=== PATIENT | female | born 1960 | race Caucasian/White ===

== ENCOUNTER → 2018-10-08 11:29 | Outpatient (CLI) | payer OTHER, SELFPAY ==
--- NOTE | 2018-10-08 | DI.MG.S_ITS ---
BILATERAL DIGITAL SCREENING MAMMOGRAM 3D/2D WITH CAD: 10/08/2018 CLINICAL: Routine screening. Comparison is made to exams dated: 10/08/2017 mammogram, 10/02/2016 mammogram, and 09/17/2015 mammogram - [facility]. The tissue of both breasts is heterogeneously dense. This may lower the sensitivity of mammography. Current study was also evaluated with a Computer Aided Detection (CAD) system. No significant masses, calcifications, or other findings are seen in either breast. There has been no significant interval change. IMPRESSION: NEGATIVE There is no mammographic evidence of malignancy. A 1 year screening mammogram is recommended. This exam was interpreted at Station ID: [id number]. NOTE: For mammograms, a report in lay terms will be sent to the patient. Approximately 15% of breast malignancies will not be visualized mammographically. In the management of a palpable breast mass, a negative mammogram must not discourage biopsy of a clinically suspicious lesion. Electronically Signed By: Kade shipley/milagros:10/08/2018 13:27:07 letter sent: Normal Exam ACR BI-RADS Category 1: Negative 3341F
== END ==
PROVIDERS: PCP Physician Assistant; Visit Provider Physician Assistant
DX: Z12.31 Encounter for screening mammogram for malignant neoplasm of breast (principal)
CPT/HCPCS: 77063; 77067

== ENCOUNTER → 2018-12-17 10:05 | Outpatient (CLI) | payer OTHER, SELFPAY ==
[2018-12-17 11:20] LABS: Add Manual Diff / Slide Review NO; Basophils Absolute Auto 0 /uL (0-100); Basophils Percent Auto 0.8 % (0-2); Eosinophils Absolute Auto 100 /uL (0-450); Eosinophils Percent Auto 2.2 % (2-4); Hematocrit 44.3 % (36-46); Hemoglobin 14.6 g/dL (12.0-16.0); Lymphocytes Absolute Auto 1700 /uL (1100-4500); Lymphocytes Percent Auto 28.4 % (25-40); Mean Corpuscular Hemoglobin 28.5 PG (26-34); Mean Corpuscular Volume 86.2 fL (80-100); Monocytes Absolute Auto 500 /uL (0-900); Monocytes Percent Auto 9.2 % (3-14); Neutrophils Absolute Auto 3500 /uL (1500-7000); Neutrophils Percent Auto 59.4 % (50-75); Platelet Count 270 X10^3/uL (150-400); Red Blood Cell Count 5.14 X10^6/uL (4.0-5.2); Red Cell Distribution Width 14.4 % (11.6-14.8); White Blood Cell Count 5.9 X10^3/uL (4.5-11.0)
[2018-12-17 11:39] LABS: Alanine Aminotransferase 41 IU/L (9-52); Albumin 4.5 g/dL (3.5-5.0); Albumin Globulin Ratio 1.3 (1.0-2.8); Alkaline Phosphatase 72 U/L (38-126); Aspartate Aminotransferase 33 IU/L (14-36); BUN Creatinine Ratio 17.5 (6-22); Bilirubin Total 0.4 mg/dL (0.2-1.3); Blood Urea Nitrogen 14 mg/dL (7-17); Calcium 9.6 mg/dL (8.4-10.2); Carbon Dioxide 31 mmol/L (22-32); Chloride 102 mmol/L (98-107); Cholesterol 233 mg/dL (140-199); Estimated Glomerular Filt Rate > 60.0 mL/min (>60); Globulin 3.4 g/dL (1.7-4.1); Glucose 93 mg/dL (70-100); HDL Cholesterol 46 mg/dL (40-60); HEMOLYSIS < 15 (0-50); LDL Cholesterol Calculated 159 mg/dL (<100); Potassium 4.1 mmol/L (3.4-5.1); Sodium 143 mmol/L (137-145); Total Protein 7.9 g/dL (6.3-8.2); Triglycerides 141 mg/dL (35-150)
[2018-12-17 11:47] LABS: Iron 97 ug/dL (37-170)
[2018-12-17 11:58] LABS: Total Iron Binding Capacity 343 ug/dL (265-497)
[2018-12-17 12:13] LABS: Ferritin 26.4 ng/mL (11.1-264); Thyroid Stimulating Hormone 0.59 uIU/mL (0.47-4.68)
== END ==
PROVIDERS: Visit Provider Internal Medicine
DX: E61.1 Iron deficiency (principal); F41.9 Anxiety disorder, unspecified; E78.5 Hyperlipidemia, unspecified; I10 Essential (primary) hypertension
CPT/HCPCS: 36415; 80053; 80061; 82728; 83540; 83550; 84443; 85025

== ENCOUNTER → 2019-04-08 12:49 | Outpatient (CLI) | payer OTHER, SELFPAY ==
[2019-04-08 13:21] LABS: Alanine Aminotransferase 41 IU/L (9-52); Albumin 4.7 g/dL (3.5-5.0); Albumin Globulin Ratio 1.4 (1.0-2.8); Alkaline Phosphatase 56 U/L (38-126); Aspartate Aminotransferase 34 IU/L (14-36); Bilirubin Total 0.5 mg/dL (0.2-1.3); Blood Urea Nitrogen 14 mg/dL (7-17); Calcium 9.5 mg/dL (8.4-10.2); Carbon Dioxide 31 mmol/L (22-32); Chloride 101 mmol/L (98-107); Cholesterol 203 mg/dL (140-199); Estimated Glomerular Filt Rate > 60.0 mL/min (>60); Globulin 3.3 g/dL (1.7-4.1); Glucose 93 mg/dL (70-100); HDL Cholesterol 44 mg/dL (40-60); HEMOLYSIS < 15 (0-50); LDL Cholesterol Calculated 121 mg/dL (<100); Potassium 4.2 mmol/L (3.4-5.1); Sodium 141 mmol/L (137-145); Triglycerides 191 mg/dL (35-150)
== END ==
PROVIDERS: PCP Internal Medicine; Visit Provider Internal Medicine
DX: E78.5 Hyperlipidemia, unspecified (principal)
CPT/HCPCS: 36415; 80053; 80061

== ENCOUNTER → 2019-04-15 15:24 | Outpatient (ROUT) | payer OTHER, SELFPAY ==
[2019-04-15 15:50] LABS: Add Manual Diff / Slide Review NO; Basophils Absolute Auto 100 /uL (0-100); Basophils Percent Auto 0.8 % (0-2); Eosinophils Absolute Auto 100 /uL (0-450); Eosinophils Percent Auto 1.5 % (2-4); Hematocrit 43.2 % (36-46); Hemoglobin 14.3 g/dL (12.0-16.0); Lymphocytes Absolute Auto 1400 /uL (1100-4500); Lymphocytes Percent Auto 21.7 % (25-40); Mean Corpuscular Hemoglobin 28.9 PG (26-34); Mean Corpuscular Volume 87.5 fL (80-100); Monocytes Absolute Auto 500 /uL (0-900); Monocytes Percent Auto 7.4 % (3-14); Neutrophils Absolute Auto 4400 /uL (1500-7000); Neutrophils Percent Auto 68.6 % (50-75); Platelet Count 294 X10^3/uL (150-400); Red Blood Cell Count 4.94 X10^6/uL (4.0-5.2); Red Cell Distribution Width 13.4 % (11.6-14.8); White Blood Cell Count 6.4 X10^3/uL (4.5-11.0)
[2019-04-18 22:44] LABS: Estrogen 95.4 pg/mL
== END ==
PROVIDERS: PCP Internal Medicine; Visit Provider Internal Medicine
DX: N95.1 Menopausal and female climacteric states (principal); N93.8 Other specified abnormal uterine and vaginal bleeding
CPT/HCPCS: 82672; 83001; 83002; 85025

== ENCOUNTER → 2019-04-16 14:33 | Outpatient (CLI) | payer OTHER, SELFPAY ==
--- NOTE | 2019-04-16 | DI.US.S_ITS ---
PROCEDURE: US PELVIC COMPLETE INDICATIONS: ABNORMAL UTERINE AND VAGINAL BLEEDING TECHNIQUE: Real-time scanning was performed of the pelvic organs, with image documentation. Additional endovaginal scanning was necessary due to incomplete visualization of the adnexal and endometrial structures by transabdominal scanning. COMPARISON: None. FINDINGS: Transabdominal scanning: Limited scanning through the kidneys shows no hydronephrosis. No pathologic free abdominal or pelvic fluid. Endovaginal scanning: Uterus: Uterus is enlarged in size at 7.5 x 3.7 x 4.4 cm. The endometrium measures 4.0 mm in combined thickness. Solid hypoechoic cervical posterior wall mass present likely a cervical fibroid measuring 2.5 x 2.1 x 2.8 cm. Subserosal uterine and intramural fibroids present, measuring 2.0 x 1.8 x 2.1 cm and 1.7 x 1.7 x 1.7 cm respectively. Ovaries: Ovaries normal in size measuring 2.5 x 1.0 x 1.2 cm on the right and 2.7 x 1.6 x 2.2 cm on the left. Thick walled, complex mass associated with the left ovary measuring 2.0 x 1.8 x 2.0 cm. IMPRESSION: 1. Uterine fibroids and probable posterior wall cervical fibroid which measures up to 2.8 cm. Followup ultrasound in 3 months is recommended to assess for temporal stability and/or changes. 2. Probable small left hemorrhagic cyst measuring up to 2.0 cm. Recommend followup ultrasound in 6-10 weeks to assess for temporal resolution. Dictated by: Clemente AVILA Interpreted: Safia Darnell MD on 04/17/2019 at 8:47 Approved by: Safia Darnell MD, PhD on 04/17/2019 at 9:55
== END ==
PROVIDERS: PCP Internal Medicine; Visit Provider Internal Medicine
DX: N93.8 Other specified abnormal uterine and vaginal bleeding (principal); D25.1 Intramural leiomyoma of uterus; D25.2 Subserosal leiomyoma of uterus; N83.292 Other ovarian cyst, left side
CPT/HCPCS: 76830; 76856

== ENCOUNTER → 2019-06-23 12:27 | Outpatient (CLI) | payer OTHER, SELFPAY ==
--- NOTE | 2019-06-23 | DI.US.S_ITS ---
PROCEDURE: US PELVIC COMPLETE INDICATIONS: IRREGULAR BLEEDING TECHNIQUE: Real-time scanning was performed of the pelvic organs, with image documentation. Additional endovaginal scanning was necessary due to incomplete visualization of the adnexal and endometrial structures by transabdominal scanning. COMPARISON: [facility], , US PELVIC COMPLETE, 04/16/2019, 14:47. FINDINGS: Transabdominal scanning: Limited scanning through the kidneys shows no hydronephrosis. No pathologic free abdominal or pelvic fluid. Endovaginal scanning: Uterus: Uterus is normal in size at 4.0 x 5.2 x 7.9 cm, anteverted. The endometrium measures 10.0 mm in combined thickness and there is a polypoid mass identified with a vascular stalk with the overall dimensions measuring up to 1.1 x 1.2 x 0.8 cm. What appear to be uterine fibroids are present, measuring up to 3.1 x 2.9 x 2.1 cm and 1.9 x 1.7 x 2.2 cm at the left myometrium and also at the midline, subserosal positioning.. The larger of these 2 is located at the junction of the cervix and the lower uterine segment. The exact etiology is uncertain. Ovaries: The right ovary measures 1.0 x 1.4 x 2.4 cm. The left ovary measures 1.8 x 2.2 x 3.4 cm. A 1.5 cm simple cyst is seen at the left ovary. IMPRESSION: Abnormal endometrial mass, comprised of a polypoid mass like structure on a vascular stalk, in a post menopausal patient. Additionally, there is a solid ovoid mass at the left low uterine segment margin with the cervix. This most likely is a uterine fibroid but gynecological consultation is recommended to assess each of these areas for possible underlying malignancy. Dictated by: Sunny Frias M.D. on 06/23/2019 at 15:19 Approved by: Sunny Frias M.D. on 06/23/2019 at 15:24
== END ==
PROVIDERS: PCP Internal Medicine; Visit Provider Internal Medicine
DX: N95.0 Postmenopausal bleeding (principal); N83.8 Other noninflammatory disorders of ovary, fallopian tube and broad ligament; N83.292 Other ovarian cyst, left side; N85.9 Noninflammatory disorder of uterus, unspecified
CPT/HCPCS: 76830; 76856

== ENCOUNTER → 2019-11-04 08:54 | Outpatient (CLI) | payer OTHER, SELFPAY ==
[2019-11-05 09:54] LABS: COVID19 Sendout Not Detected (Not Detect)
== END ==
PROVIDERS: PCP Internal Medicine; Visit Provider Registered Nurse
DX: Z01.818 Encounter for other preprocedural examination (principal)
CPT/HCPCS: 87635

== ENCOUNTER 2019-11-06 10:06 | Day surgery (SDC) | payer OTHER, SELFPAY ==
[2019-11-04 08:10] VITALS: BMI 26.9
[2019-11-06] VITALS (12 sets, daily range): BP systolic 123–149; BP diastolic 67–100; PULSE 69–98; RESP 14–24; TEMP 36.2–36.9; O2SAT 95–100; BMI 25.7
--- NOTE | 2019-11-06 | PATH_ITS ---
[facility] Accession Number: [id number] . 01 Material submitted: . cervix - CERVICAL POLYP . 01 Clinical history: . D/C HYSTEROSCOPY . 02 Diagnosis: Cervical Polyp: Multiple fragments of benign polyp, favor endocervix / lower uterine segment origin; negative for glandular hyperplasia, glandular dysplasia, or malignancy. [facility] 11/07/2019 1356 Local . 02 Electronically signed: . Love Arango MD, Pathologist NPI- [id number] . 01 Gross description: . CERVICAL POLYP: Received in formalin are minute fragments of mucoid and hemorrhagic material measuring 0.3 x 0.2 x 0.2 cm in aggregate. Submitted in toto in 1 cassette. /DANIEL 11/06/20199 Local . 02 Pathologist provided ICD-10: N94.89 . 02 CPT . 124809 Performed at: 01 [facility] [address], [place], [place] [id number] MD Eb Rosario MD Phone: [phone] Performed at: 02 [facility] [address] [place], [place] [id number] MD Rafaela Hoyt MD Phone: [phone]
[2019-11-06] MEDS: LACTATED RINGERS 1,000 ML 42 ML IV (11:01)
--- NOTE | 2019-11-06 11:55 | PM.PREOP ---
Pre-operative Note COVID-19 COVID-19 status: Negative Result date/Date tested (Pos, Neg/Pending): 11/04/19 Interval Note History & Physical reviewed/Exam performed by Physician: Yes Changes to H&P: No
[2019-11-06] MEDS: SILVER NITRATE STICK 2 EACH TOP (13:53)
--- NOTE | 2019-11-06 14:31 | P.OP_ITS ---
Operative Date/Time/Diagnoses Date of procedure: 11/06/19 Time of procedure: 14:00 Pre-op diagnosis: polypoid endometrial mass on ultrasound Post-op diagnosis: other (uterine cavity not well visualized) Procedure & Clinicians Procedure: Removal of cervical polyp. Dilatation, hysteroscopy. Same procedure as scheduled: No (dilatation and hysteroscopy peprformed. curretage not performed) Indications: 1.1 cm polypoid endometrial mass on ultrasound Surgeon: Bhavya Mena Click Yes if Unassisted: Yes Anesthesia Type: General Operative Notes Findings: 1/2 cm cervical polyp protruding at the cervical os, appeared attached within lower cervical canal. After removal, on hysteroscopy the endocervical canal otherwise appeared normal, without lesions. Did not see any extension of the cervical polyp higher into the endocervical canal nor in to the uterus. Atrophic appearing endometrium seen on brief visualization and uterine cavity and appear to be a narrow cavity, but further assessment of uterine cavity not able to be performed. Closure Type: not applicable Specimen(s): other (Cervical polyp) Estimated Blood Loss (mL): 10 Blood products transfused: none Procedure in detail: After being properly identified she was transferred to the operating room. After an adequate level of general anesthesia was obtained she was placed in Remy stirrups in the dorsal lithotomy position. Bimanual examination was performed. She was prepped and draped in routine sterile fashion. Her bladder was sterilely drained with a rubber catheter with the prep, of approximately 200 mL of urine. An open-sided speculum was placed and the cervix was grasped with a single-tooth tenaculum. Speculum was then changed to the weighted speculum. An approximate 1/2x1cm polyp was seen at the cervical os, with probing appeared to have a loose attachment going into the cervical canal. Polyp left in place at this time, to see if it further extended into the uterus. Up on attempting to dilate, the internal cervical os was stenotic. The smallest dilator would not pass. The very small director surface transportation dilator set was obtained but a very small dilator would not pass in the area that palpated to be her cervical os. I did not want to pass the tiniest dilator and create a false channel. At this time the hysteroscope was used and passed through the external os, and I visualize where the internal os appeared to be to confirm I was in the correct location. After failing attempt with the dilator again, I used a plastic os finder and this was able to be passed through the cervical os. The small dilators were then used and gradual dilatation was performed. After some dilatation, the uterine sound was passed. Uterus sounded to 6 cm. The cervix was further gradually dilated up and the small hysteroscope was able to be passed. Normal saline solution was used as the uterine distention medium. Visualization could not be obtained in the uterine cavity, only being able to see bloody fluid, not clearing up otherwise. The scope was removed and the cervix was further dilated. Repeat hysteroscopy performed, but again without obtaining adequate visualization. Cervix was thus further gradually dilated to accommodate the larger operative hysteroscope/resectoscope for the larger inflow and outflow. Cervix was tight with trying to pass the last dilator and the tenaculum pulled off twice and was again placed. This dilator was able to be gradually passed with pressure. Uterus was re-sounded and sounded to 6 cm. This resectoscope was passed. Normal saline solution was still left as the hysteroscopic medium. The cervical polyp was noted to be in attached just within the cervical canal on her posterior right side. Since this polyp was being pushed into the cervix with the larger dilators, and resectoscope, at this time the polyp was grasped with the polyp forceps and removed. The resectoscope was then placed back in the cervical canal. The polyp appeared removed and without bleeding from the site. The scope was further inserted into the uterus. Initially again there was only normal bloody fluid noted, but it began to now clear with keeping the resectoscope in the upper uterus. Initial partial view revealed a small, narrow uterine cavity with only white atrophic tissue seen. The view was still cloudy, hysteroscopic medium was still clearing, and tubal ostia, full cavity and endometrium not yet visualized. 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 The resectoscope was removed and additional anesthesia medication was given. After she appeared comfortable the hysteroscope was again placed. With placement now the hysteroscope passed much deeper than previously, with no resistance met at the fundus. The hysteroscope was removed. The uterine sound was placed and the sound passed to 13 cm with no resistance met, could have been fast further. Uterine perforation suspected. The resectoscope was again placed and upon attempted visualization now, bowel could be visible near what appeared to be a uterine opening. There was more turbulent flow now of the normal saline solution, not good uterine distention but it appeared to be around her left uterine fundus. There was no bleeding noted at the site. The resectoscope was thus removed with confirmed uterine perforation. Also at this time for the 1st time input and output became out of balance from running even. The procedure was thus now ended. No endometrial sampling was performed due to the uterine perforation. The tenaculum was removed. There was good hemostasis at the tenaculum site. With observation there was no bleeding from the cervical os. Good hemostasis noted. The procedure was ended. She tolerated the procedure well and went to recovery room stable condition. Complications: other (uterine perforation at the fundus) Post-operative Condition: stable Disposition: PACU Plan for aftercare: Placed as observation patient for 4 hours with CBC in 4 hours post procedure. Vital signs remained good. She had minimal bleeding on her pad. Repeat CBC in 4 hours showed a normal hemoglobin/hematocrit, same as her baseline. She was thus discharged home with precautions given for when to call including review of signs and symptoms of infection.
--- NOTE | 2019-11-06 14:40 | SUR.PHASEI ---
Patient denies nausea. C/O slight cramping. Will transfer upstairs fpr obs.
[2019-11-06] MEDS: IBUPROFEN 600 MG TABLET PO (15:58)
--- NOTE | 2019-11-06 17:10 | PC.NURSE ---
Addendum entered by Hawa Pascal R.N. 11/06/19 19:49: Per Dr. Mena, pt may be discharged to home. IV removed by car cleaning supervisor, Nadia, discharge instructions [facility]atal[facility]. Pt was given clear liquids to drink prior to discharge. Left hospital with staff escort in stable condition. Addendum entered by Hawa Pascal R.N. 11/06/19 18:10: Surgeon in to see patient. Awaiting 1800 lab draw. No diet order per MD until lab results reported. Original Note: Pt resting quietly in bed. Admits to feeling urge to void. Has attempted void prior to the beginning of this shift without any measurable urine being passed. Bladder scanned for 302 cc's. Pt with standby assistance into bathroom and able to void 800 cc's per STUDENT DEVELOPMENT COORDINATOR. Pt denies nausea. Reports very little vaginal bleeding. Peripad in place. Awaiting 1800 blood draw. Ibuprofen given for pt's c/o abdominal cramping similar to menstrual cramps per pt statement 3-4/.
[2019-11-06 18:26] LABS: Hematocrit 43.8 % (36-46); Hemoglobin 14.3 g/dL (12.0-16.0); Mean Corpuscular HGB Conc 32.7 % (30-36); Mean Corpuscular Hemoglobin 27.9 PG (26-34); Mean Corpuscular Volume 85.3 fL (80-100); Platelet Count 288 X10^3/uL (150-400); Red Blood Cell Count 5.14 X10^6/uL (4.0-5.2); Red Cell Distribution Width 14.8 % (11.6-14.8); White Blood Cell Count 12.3 X10^3/uL (4.5-11.0)
[2019-11-06 18:51] LABS: Add Manual Diff / Slide Review NO; Basophils Percent Auto 0.2 % (0-2); Lymphocytes Absolute Auto 1 /uL (1100-4500); Lymphocytes Percent Auto 5.3 % (25-40); Monocytes Absolute Auto 0 /uL (0-900); Monocytes Percent Auto 0.8 % (3-14); Neutrophils Absolute Auto 12 /uL (1500-7000); Neutrophils Percent Auto 93.7 % (50-75)
[2019-11-06 18:52] LABS: Basophils Absolute Auto 0 /uL (0-100); Eosinophils Absolute Auto 0 /uL (0-450)
== END 2019-11-06 19:47 | disposition home or self-care (01) ==
LOC: OR 10:08 → AC 15:20
PROVIDERS: PCP Internal Medicine; Referring Provider Obstetrics & Gynecology; Visit Provider Obstetrics & Gynecology
PROC: 0UDB8ZZ Extraction of Endometrium, Via Natural or Artificial Opening Endoscopic (ICD-10-PCS; CPT 58558; principal; 2019-11-06 11:15)
DX: N84.0 Polyp of corpus uteri (principal); S37.69XA Other injury of uterus, initial encounter; K21.9 Gastro-esophageal reflux disease without esophagitis; F41.9 Anxiety disorder, unspecified; K22.70 Barrett's esophagus without dysplasia; D64.9 Anemia, unspecified; I10 Essential (primary) hypertension
CPT/HCPCS: 58558; 36415; 85025; J1100; J2250; J2405; J2704; J3010

== ENCOUNTER → 2019-12-08 13:30 | Outpatient (CLI) | payer OTHER, SELFPAY ==
[2019-11-06 15:27] VITALS: BMI 25.7
--- NOTE | 2019-12-08 13:31 | DI.US.S_ITS ---
PROCEDURE: US PELVIC COMPLETE INDICATIONS: ENDOMETRIAL THICKNESS TECHNIQUE: Real-time scanning was performed of the pelvic organs, with image documentation. Additional endovaginal scanning was necessary due to incomplete visualization of the adnexal and endometrial structures by transabdominal scanning. COMPARISON: None. FINDINGS: Transabdominal scanning: Limited scanning through the kidneys shows no hydronephrosis. No pathologic free abdominal or pelvic fluid. Endovaginal scanning: Uterus: Uterus is enlarged in size at 9.8 x 3.8 x 4.9 cm. The endometrium measures 1.2 cm in combined thickness. 3 subserosal fibroids the largest measuring up to 3.6 cm which involves the posterior cervix. Ovaries: Ovaries measure 2.5 x 1.2 x 2.0 cm on the right and 4.4 x 2.9 x 2.6 cm on the left. Complex cyst with fine low level internal echoes and septations associated with the left ovary measuring 2.5 x 1.9 x 2.2 cm. IMPRESSION: Left ovarian complex cyst suspicious for either a hemorrhagic ovarian cyst or endometrioma. Other benign or malignant neoplasm cannot be excluded and short-term followup pelvic ultrasound in 6-12 weeks is recommended. Presumed subserosal fibroids, largest of which involves the posterior wall of the cervix which also can be reassessed on followup examination to exclude an underlying cervical wall neoplastic mass. Dictated by: Clemente AVILA Interpreted: Rashida Villanueva MD on 12/08/2019 at 15:22 Approved by: Rashida Villanueva M.D. on 12/08/2019 at 17:44
== END ==
PROVIDERS: PCP Internal Medicine; Referring Provider Obstetrics & Gynecology; Visit Provider Obstetrics & Gynecology
DX: R93.89 Abnormal findings on diagnostic imaging of other specified body structures (principal); N83.292 Other ovarian cyst, left side; D25.9 Leiomyoma of uterus, unspecified
CPT/HCPCS: 76830; 76856

== ENCOUNTER → 2020-02-03 15:52 | Outpatient (CLI) | payer OTHER, SELFPAY ==
[2019-12-16 13:33] VITALS: BMI 25.7
--- NOTE | 2020-02-03 | DI.MG.S_ITS ---
BILATERAL DIGITAL SCREENING MAMMOGRAM 3D/2D WITH CAD: 02/03/2020 CLINICAL: Routine screening. Comparison is made to exams dated: 10/08/2018 mammogram, 10/08/2017 mammogram, and 10/02/2016 mammogram - [facility]. The tissue of both breasts is heterogeneously dense. This may lower the sensitivity of mammography. Current study was also evaluated with a Computer Aided Detection (CAD) system. No significant masses, calcifications, or other findings are seen in either breast. There has been no significant interval change. IMPRESSION: NEGATIVE There is no mammographic evidence of malignancy. A 1 year screening mammogram is recommended. This exam was interpreted at Station ID: [id number]. NOTE: For mammograms, a report in lay terms will be sent to the patient. Approximately 15% of breast malignancies will not be visualized mammographically. In the management of a palpable breast mass, a negative mammogram must not discourage biopsy of a clinically suspicious lesion. Electronically Signed By: Ghulam garcia/milagros:02/03/2020 16:19:45 letter sent: Normal Exam ACR BI-RADS Category 1: Negative 3341F
== END ==
PROVIDERS: PCP Internal Medicine; Referring Provider Internal Medicine; Visit Provider Internal Medicine
DX: Z12.31 Encounter for screening mammogram for malignant neoplasm of breast (principal)
CPT/HCPCS: 77063; 77067

== ENCOUNTER → 2020-08-26 15:10 | Outpatient (ROUT) | payer OTHER, SELFPAY ==
[2019-12-16 13:33] VITALS: BMI 25.7
[2020-08-26 15:45] LABS: Add Manual Diff / Slide Review NO; Basophils Absolute Auto 100 /uL (0-100); Basophils Percent Auto 1.2 % (0-2); Eosinophils Absolute Auto 100 /uL (0-450); Eosinophils Percent Auto 1.9 % (2-4); Hematocrit 42.9 % (36-46); Hemoglobin 14.1 g/dL (12.0-16.0); Lymphocytes Absolute Auto 1500 /uL (1100-4500); Lymphocytes Percent Auto 24.4 % (25-40); Mean Corpuscular HGB Conc 32.8 % (30-36); Mean Corpuscular Hemoglobin 27.9 PG (26-34); Monocytes Absolute Auto 500 /uL (0-900); Monocytes Percent Auto 8.8 % (3-14); Neutrophils Absolute Auto 3900 /uL (1500-7000); Neutrophils Percent Auto 63.7 % (50-75); Platelet Count 280 X10^3/uL (150-400); Red Blood Cell Count 5.05 X10^6/uL (4.0-5.2); Red Cell Distribution Width 13.6 % (11.6-14.8)
[2020-08-26 16:03] LABS: HEMOLYSIS < 15 (0-50); Iron 83 ug/dL (37-170)
[2020-08-26 16:08] LABS: Alanine Aminotransferase 45 IU/L (<35); Albumin 4.6 g/dL (3.5-5.0); Albumin Globulin Ratio 1.5 (1.0-2.8); Alkaline Phosphatase 91 U/L (38-126); Aspartate Aminotransferase 34 IU/L (14-36); BUN Creatinine Ratio 17.3 (6-22); Bilirubin Total 0.3 mg/dL (0.2-1.3); Blood Urea Nitrogen 13 mg/dL (7-17); Carbon Dioxide 27 mmol/L (22-32); Chloride 104 mmol/L (98-107); Cholesterol 234 mg/dL (140-199); Estimated Glomerular Filt Rate > 60.0 mL/min (>60); Glucose 111 mg/dL (70-100); HDL Cholesterol 48 mg/dL (40-60); HEMOLYSIS < 15 (0-50); LDL Cholesterol Calculated 150 mg/dL (<100); Potassium 4.1 mmol/L (3.4-5.1); Sodium 142 mmol/L (137-145); Total Protein 7.6 g/dL (6.3-8.2); Triglycerides 178 mg/dL (35-150)
[2020-08-26 16:14] LABS: Percent Iron Saturation 22 % (15-50); Total Iron Binding Capacity 373 ug/dL (265-497); Transferrin 310 mg/dL (206-381)
[2020-08-26 16:40] LABS: Ferritin 20 ng/mL (11-264)
== END ==
PROVIDERS: PCP Internal Medicine; Visit Provider Physician Assistant
DX: E78.5 Hyperlipidemia, unspecified (principal); D50.9 Iron deficiency anemia, unspecified; I10 Essential (primary) hypertension
CPT/HCPCS: 80053; 80061; 82728; 83540; 83550; 85025

== ENCOUNTER → 2020-08-27 14:09 | Outpatient (CLI) | payer OTHER, SELFPAY ==
[2019-12-16 13:33] VITALS: BMI 25.7
[2020-08-27] MEDS: COVID-19 VACC #1, MRNA(MOD) 100 MCG/0.5 ML VIAL IM (14:21)
== END ==
PROVIDERS: PCP Internal Medicine; Visit Provider Internal Medicine
DX: Z23 Encounter for immunization (principal)
CPT/HCPCS: 0011A; 91301

== ENCOUNTER → 2020-09-24 14:05 | Outpatient (CLI) | payer OTHER, SELFPAY ==
[2019-12-16 13:33] VITALS: BMI 25.7
[2020-09-24] MEDS: COVID-19 VACC #2, MRNA(MOD) 100 MCG/0.5 ML VIAL IM (14:14)
== END ==
PROVIDERS: PCP Internal Medicine; Visit Provider Internal Medicine
DX: Z23 Encounter for immunization (principal)
CPT/HCPCS: 0012A; 91301

== ENCOUNTER → 2021-03-22 08:59 | Outpatient (CLI) | payer OTHER, SELFPAY ==
[2019-12-16 13:33] VITALS: BMI 25.7
--- NOTE | 2021-03-22 | DI.MG.S_ITS ---
BILATERAL DIGITAL SCREENING MAMMOGRAM 3D/2D WITH CAD: 03/22/2021 CLINICAL: Routine screening. Comparison is made to exams dated: 02/03/2020 mammogram, 10/08/2018 mammogram, and 10/08/2017 mammogram - [facility]. The tissue of both breasts is heterogeneously dense. This may lower the sensitivity of mammography. Current study was also evaluated with a Computer Aided Detection (CAD) system. There are benign calcifications in the left breast. No significant masses, calcifications, or other findings are seen in either breast. There has been no significant interval change. IMPRESSION: BENIGN There is no mammographic evidence of malignancy. A 1 year screening mammogram is recommended. This exam was interpreted at Station ID: [id number]. NOTE: For mammograms, a report in lay terms will be sent to the patient. Approximately 15% of breast malignancies will not be visualized mammographically. In the management of a palpable breast mass, a negative mammogram must not discourage biopsy of a clinically suspicious lesion. Electronically Signed By: Jaqueline logan/milagros:03/22/2021 10:23:38 letter sent: Normal Exam ACR BI-RADS Category 2: Benign Finding(s) 3342F
== END ==
PROVIDERS: PCP Physician Assistant; Referring Provider Physician Assistant; Visit Provider Physician Assistant
DX: Z12.31 Encounter for screening mammogram for malignant neoplasm of breast (principal)
CPT/HCPCS: 77063; 77067

== ENCOUNTER → 2021-03-28 09:28 | Outpatient (CLI) | payer OTHER, SELFPAY ==
[2019-12-16 13:33] VITALS: BMI 25.7
--- NOTE | 2021-03-28 | DI.CT.S_ITS ---
PROCEDURE: CT ABDOMEN PELVIS W CON INDICATIONS: LOWER ABD PAIN TECHNIQUE: After the administration of oral and IV contrast, axial sections were acquired from the lung bases to the pubic symphysis. Coronal and sagittal reformats were performed. For radiation dose reduction, the following was used: automated exposure control, adjustment of mA and/or kV according to patient size. COMPARISON: None. FINDINGS: Image quality: Excellent. Lung bases: No consolidation or pleural effusion. Heart: No significant findings. ABDOMEN: Liver: Unremarkable. Gallbladder: Distended without wall thickening or pericholecystic fluid. Biliary ducts: Unremarkable. Pancreas: Normal contour without duct dilatation. Spleen: Normal contour without enlargement. Adrenal Glands: Unremarkable. Kidneys and Ureters: Symmetric enhancement without evidence of obstructive uropathy. Stomach and Bowel: Trace hiatal hernia. No evidence of intestinal obstruction. Pang diverticulosis. Normal appendix. Peritoneum: No abnormal intraperitoneal fluid. No free air. Ventral Wall: No hernia. Abdominal Nodes: No retroperitoneal or mesenteric adenopathy by size criteria. Vessels: Aorta and inferior vena cava are normal in size. PELVIS: Pelvic Organs: Unremarkable. Bladder: Smooth bladder wall. Pelvic Nodes: No enlarged lymph nodes. Miscellaneous: Trace fat containing periumbilical hernia. Bones: Unremarkable. Suggestion of rudimentary ribs at T12. 5 non rib-bearing vertebrae. IMPRESSION: 1. No acute intra-abdominal/pelvic abnormality. Dictated by: Edgardo Napoles M.D. on 03/28/2021 at 11:29 Approved by: Edgardo Napoles M.D. on 03/28/2021 at 11:35
== END ==
PROVIDERS: PCP Physician Assistant; Referring Provider Physician Assistant; Visit Provider Physician Assistant
DX: R10.30 Lower abdominal pain, unspecified (principal)
CPT/HCPCS: 74177; Q9967

== ENCOUNTER → 2021-04-15 11:18 | Outpatient (CLI) | payer OTHER, SELFPAY ==
[2019-12-16 13:33] VITALS: BMI 25.7
[2021-04-15] MEDS: COVID-19 VACC #3, MRNA(MOD) 50 MCG/0.25 ML VIAL IM (11:27)
== END ==
PROVIDERS: PCP Physician Assistant; Visit Provider Internal Medicine
DX: Z23 Encounter for immunization (principal)
CPT/HCPCS: 0013A; 91301

== ENCOUNTER 2021-10-10 11:26 | Emergency (ER) | payer OTHER, SELFPAY ==
[2019-12-16 13:33] VITALS: BMI 25.7
[2021-10-10] VITALS (7 sets, daily range): BP systolic 118–159; BP diastolic 65–89; PULSE 64–132; RESP 16–22; TEMP 36.7; O2SAT 97–100; BMI 27.3
[2021-10-10 12:32] LABS: Add Manual Diff / Slide Review NO; Basophils Absolute Auto 100 /uL (0-100); Basophils Percent Auto 0.5 % (0-2); Eosinophils Absolute Auto 0 /uL (0-450); Eosinophils Percent Auto 0.3 % (2-4); Hematocrit 32.5 % (36-46); Lymphocytes Absolute Auto 1500 /uL (1100-4500); Lymphocytes Percent Auto 13.3 % (25-40); Mean Corpuscular HGB Conc 33.9 % (30-36); Mean Corpuscular Hemoglobin 28.2 PG (26-34); Mean Corpuscular Volume 83.3 fL (80-100); Monocytes Absolute Auto 800 /uL (0-900); Monocytes Percent Auto 6.9 % (3-14); Neutrophils Absolute Auto 8600 /uL (1500-7000); Platelet Count 335 X10^3/uL (150-400); Red Blood Cell Count 3.91 X10^6/uL (4.0-5.2); Red Cell Distribution Width 13.6 % (11.6-14.8)
[2021-10-10 12:53] LABS: Alanine Aminotransferase 30 IU/L (<35); Albumin 4.4 g/dL (3.5-5.0); Albumin Globulin Ratio 1.5 (1.0-2.8); Alkaline Phosphatase 73 U/L (38-126); Aspartate Aminotransferase 35 IU/L (14-36); BUN Creatinine Ratio 22.8 (6-22); Bilirubin Total 0.5 mg/dL (0.2-1.3); Blood Urea Nitrogen 18 mg/dL (7-17); Calcium 9.1 mg/dL (8.4-10.2); Carbon Dioxide 26 mmol/L (22-32); Chloride 104 mmol/L (98-107); Estimated Glomerular Filt Rate > 60 mL/min (>60); Globulin 2.9 g/dL (1.7-4.1); Glucose 116 mg/dL (70-100); HEMOLYSIS < 15 (0-50); Potassium 3.8 mmol/L (3.4-5.1); Sodium 138 mmol/L (137-145); Total Protein 7.3 g/dL (6.3-8.2)
[2021-10-10 14:09] LABS: INR 1.1 (0.9-1.3); Prothrombin Time 12.3 SECONDS (10.1-12.7)
[2021-10-10 14:11] LABS: PTT Partial Thromboplastin Tim 27 SECONDS (26.4-36.2)
[2021-10-10 14:16] LABS: Lactate (Lactic Acid) 1.1 mmol/L (0.7-2.1)
[2021-10-10] MEDS: PANTOPRAZOLE 40 MG VIAL IV (15:39)
[2021-10-10] MEDS: SODIUM CHLORIDE 0.9% 1,000 ML 1000 ML IV (15:52)
--- NOTE | 2021-10-10 16:25 | ED_ITS ---
HPI - GI Bleed General Chief complaint: GI Bleed Stated complaint: States GI bleed over the weekend Time Seen by Provider: 10/10/21 16:25 Source: patient Mode of arrival: Ambulatory History of Present Illness HPI Narrative: Patient is a 61-year-old female history of diverticulitis, Sorensen's esophagus anxiety presenting today with 2 days of rectal bleeding. She says she noticed it he yesterday she had maroon like bowel movements a couple of them. Today it actually improved. She is not on any antiplatelet or anticoagulation medicati on. Last week she did notice some mild left lower quadrant pain but it did seem to improve. She actually had a colonoscopy 9 years ago with a GI doctor she said she was given a clean bill [facility] [employer] and is due for 1 next year. She had an EGD at that time as well because she had some very it is often gets but she says that is now well controlled. She denies any nausea or vomiting. She denies any black or stool. She is known to be quite tachycardic but she is very anxious is. She denies any chest pain palpitation shortness of breath dizziness or lightheadedness. Related Data Home Medications Medication Instructions Recorded Confirmed candesartan 8 mg tablet 8 mg PO DAILY 08/12/19 01/22/20 omeprazole magnesium 20 mg 20 mg PO DAILY 08/12/19 01/22/20 tablet,delayed release (Prilosec OTC) alprazolam 0.5 mg tablet 0.5 mg PO BEDTIME PRN MDD 1.0 10/22/19 01/22/20 dicyclomine 20 mg tablet 20 mg PO BID PRN 10/22/19 01/22/20 Previous Rx's Medication Instructions Recorded acetaminophen 325 mg tablet 325 mg PO PACUNOW PRN #0 tab 11/06/19 Allergies Allergy/AdvReac Type Severity Reaction Status Date / Time lisinopril AdvReac Cough Verified 01/22/20 13:58 Review of Systems Review of Systems Narrative: GENERAL: Denies chills, fatigue, malaise, fever, sweats, travel HEENT: Denies sinus pain, ear pain, sore throat, difficulty swallowing, neck p ain RESPIRATORY: Denies dyspnea, cough, wheezing, hemoptysis, sputum. CARDIOVASCULAR: Denies chest pain, palpitations, orthopnea, edema GASTROINTESTINAL: See HPI : Denies dysuria, frequency, incontinence, hematuria, urinary retention, flank pain. MUSCULOSKELETAL: Denies weakness, joint pain, or bony pain SKIN: No rash, no erythema, no pruritus NEUROLOGIC: Denies weakness, dizziness, headache, numbness, change in speech, confusion PSYCHIATRIC: No concerning psychosocial issues. 12 point review of systems is negative except for those stated above and HPI Patient History Medical History (Updated 10/10/21 @ 18:12 by Fouzia Vasquez DO) Anemia Sorensen's syndrome (~2010) Benign colon polyp Chicken pox (~1969) Diverticular disease (~2010) Fibroids (~2018) GERD (gastroesophageal reflux disease) (~2010) Hemorrhoids History of irregular menstrual cycles (~2018) Hypertension (~2017) Recurrent sinusitis Uterine polyp Family History Grandfather Congestive heart failure Grandmother Cancer Grandfather Heart disease Grandmother Tuberculosis Social History marital status: unmarried,single household members: none pets and animals: Yes (Dog) education level: master's degree occupational status: previously employed current occupational exposures/hazards: No chpais/restorationist: Hinduism seatbelt use: always water heater temp set < 120 deg: Yes working smoke detector in home: Yes fire extinguisher in home: Yes carbon monox detector in home: Yes firearms in home: No do you feel safe at home: Yes Smoking Status: Never smoker alcohol intake: current substance use type: does not use during the past year weight has: remained stable well-balanced diet: daily or most days daily servings fruits/ve-4 eating out: rarely or never Type(s) of exercise: walking and other frequency: 3-4 times per week duration: 60-90 minutes/day Smoking Status: Never smoker alcohol intake frequency: holidays/special occasions only Substance Use Type: does not use Exam Initial Vital Signs Initial Vital Signs: Vital Signs Temperature 98.0 F 10/10/21 12:06 Pulse Rate 132 H 10/10/21 12:06 Respiratory Rate 18 10/10/21 12:06 Blood Pressure 125/70 10/10/21 12:06 Pulse Oximetry 97 10/10/21 12:06 GENERAL: Well-appearing, well-nourished and in no acute distress. HEENT: Head atraumatic,EOMI, pupils reactive, face symmetric, moist mucous membranes CARDIOVASCULAR: Regular rate and rhythm without murmurs, rubs or gallops. RESPIRATORY: Breath sounds equal bilaterally, no wheezes rales or rhonchi. ABDOMEN: Soft, minimal left lower quadrant pain no guarding no rebound negative Juan sign no other pain. RECTAL: Hemoccult-positive : No CVA tenderness EXTREMITIES: Normal range of motion, no clubbing or edema. Neurovascularly intact NEUROLOGICAL: Alert and oriented x4.Normal gait and speech. SKIN: Warm, dry, no laceration, no petechiae, no rashes or lesions. Course Orders Ordered: ED Orders 10/10/21 12:10 EKG-12 Lead Stat 10/10/21 12:19 Complete Blood Count AUTO DIFF Stat Comprehensive Metabolic Panel Stat Lactate (Lactic Acid) Stat PT [Prothrombin Time INR] Stat PTT [Partial Thromboplastin Time] Stat 10/10/21 15:57 Hemoglobin and Hematocrit Stat Urine Culture Stat Urine Microscopic Stat 10/10/21 17:14 CT abdomen pelvis w con Stat Discontinued Medications Sodium Chloride (Normal Saline 0.9%) 1,000 mls @ 1,000 mls/hr IV BOLUS ONE Stop: 10/10/21 16:40 Last Infusion: 10/10/21 17:05 Dose: 0 mls/hr Documented by: Admin: 10/10/21 15:52 Dose: 1,000 mls/hr Documented by: ESTHER Pantoprazole Sodium (Pantoprazole 40 Mg Vial) 40 mg IV NOW ONE Stop: 10/10/21 14:01 Last Admin: 10/10/21 15:39 Dose: 40 mg Documented by: ESTHER Vital Signs Vital signs: Vital Signs - 8 hr 10/10/21 15:24 10/10/21 16:00 10/10/21 16:01 Pulse Rate 120 H 64 Respiratory Rate 18 16 Blood Pressure 118/65 129/68 Pulse Oximetry 100 98 10/10/21 16:30 10/10/21 17:00 10/10/21 18:50 Pulse Rate 104 H 96 H 110 H Respiratory Rate 22 16 20 Blood Pressure 159/89 H 147/67 H 149/87 H Pulse Oximetry 100 100 99 MDM - GI Bleed Lab Data Result diagrams: 10/10/21 15:57 10/10/21 12:19 Labs: Lab Results 10/10/21 10/10/21 10/10/21 Range/Units 12:19 12:19 12:19 WBC 11.0 (4.5-11.0) X10^3/uL RBC 3.91 L (4.0-5.2) X10^6/uL Hgb 11.0 L (12.0-16.0) g/dL Hct 32.5 L (36-46) % MCV 83.3 (80-100) fL MCH 28.2 (26-34) PG MCHC 33.9 (30-36) % RDW 13.6 (11.6-14.8) % Plt Count 335 (150-400) X10^3/uL Neut % (Auto) 79.0 H (50-75) % Lymph % (Auto) 13.3 L (25-40) % [place] % (Auto) 6.9 (3-14) % Eos % (Auto) 0.3 L (2-4) % Baso % (Auto) 0.5 (0-2) % Neut # (Auto) 8600 H (9470-4116) /uL Lymph # (Auto) 1500 (5133-2484) /uL [place] # (Auto) 800 (0-900) /uL Eos # (Auto) 0 (0-450) /uL Baso # (Auto) 100 (0-100) /uL PT 12.3 (10.1-12.7) SECONDS INR 1.1 (0.9-1.3) APTT 27 (26.4-36.2) SECONDS Sodium 138 (137-145) mmol/L Potassium 3.8 (3.4-5.1) mmol/L Chloride 104 (98-107) mmol/L Carbon Dioxide 26 (22-32) mmol/L BUN 18 H (7-17) mg/dL Creatinine 0.79 (0.52-1.04) mg/dL Estimated GFR > 60 (>60) mL/min BUN/Creatinine Ratio 22.8 H (6-22) Glucose 116 H (70-100) mg/dL Lactate (0.7-2.1) mmol/L Calcium 9.1 (8.4-10.2) mg/dL Total Bilirubin 0.5 (0.2-1.3) mg/dL AST 35 (14-36) IU/L ALT 30 (<35) IU/L Alkaline Phosphatase 73 (38-126) U/L Total Protein 7.3 (6.3-8.2) g/dL Albumin 4.4 (3.5-5.0) g/dL Globulin 2.9 (1.7-4.1) g/dL Albumin/Globulin Ratio 1.5 (1.0-2.8) Urine RBC (0-5/HPF) Urine WBC (0-5/HPF) Ur Transition Epith Cell (0-5/HPF) Ur Renal Epithelial Cell (0-1/HPF) Urine Bacteria (None) Ur Culture Indicated? 10/10/21 10/10/21 10/10/21 Range/Units 12:19 15:57 15:57 WBC (4.5-11.0) X10^3/uL RBC (4.0-5.2) X10^6/uL Hgb 11.0 L (12.0-16.0) g/dL Hct 33.5 L (36-46) % MCV (80-100) fL MCH (26-34) PG MCHC (30-36) % RDW (11.6-14.8) % Plt Count (150-400) X10^3/uL Neut % (Auto) (50-75) % Lymph % (Auto) (25-40) % [place] % (Auto) (3-14) % Eos % (Auto) (2-4) % Baso % (Auto) (0-2) % Neut # (Auto) (8695-8426) /uL Lymph # (Auto) (4829-2312) /uL [place] # (Auto) (0-900) /uL Eos # (Auto) (0-450) /uL Baso # (Auto) (0-100) /uL PT (10.1-12.7) SECONDS INR (0.9-1.3) APTT (26.4-36.2) SECONDS Sodium (137-145) mmol/L Potassium (3.4-5.1) mmol/L Chloride (98-107) mmol/L Carbon Dioxide (22-32) mmol/L BUN (7-17) mg/dL Creatinine (0.52-1.04) mg/dL Estimated GFR (>60) mL/min BUN/Creatinine Ratio (6-22) Glucose (70-100) mg/dL Lactate 1.1 (0.7-2.1) mmol/L Calcium (8.4-10.2) mg/dL Total Bilirubin (0.2-1.3) mg/dL AST (14-36) IU/L ALT (<35) IU/L Alkaline Phosphatase (38-126) U/L Total Protein (6.3-8.2) g/dL Albumin (3.5-5.0) g/dL Globulin (1.7-4.1) g/dL Albumin/Globulin Ratio (1.0-2.8) Urine RBC 1-5/hpf (0-5/HPF) Urine WBC 5-10/hpf H (0-5/HPF) Ur Transition Epith Cell 1-5/hpf (0-5/HPF) Ur Renal Epithelial Cell 5-10/hpf H (0-1/HPF) Urine Bacteria Moderate (10-30) H (None) Ur Culture Indicated? Culture not indicate Point of Care Testing Test Results Negative Stool Occult Blood Positive Urine Dip Bedside Urine Glucose Negative Bedside Urine Bilirubin - Negative Bedside Urine Ketone + 15 Urine Specific [place] 1.020 Bedside Urine Occult Blood + Bedside Urine pH 6.0 Bedside Urine Protein - Negative Bedside Urine Urobilinogen +/- 1mg Bedside Urine Nitrite - Negative Bedside Urine Leukocytes ++ [address] scan - abdomen/pelvis: Radiologist's Impression: Aurelia Elise MR#: [id number] : 1960 Acct:[id number] Age/Sex: 61 / F Date of Service: 10/10/21 Loc: ED Accession Number: [id number] ?? Procedure: CT abdomen pelvis w con Ordering Provider: Fouzia Vasquez D.O. PROCEDURE:? CT ABDOMEN PELVIS W CON ? INDICATIONS:? llq pain and gi bleed ? TECHNIQUE:? After the administration of intravenous contrast, axial sections acquired from the lung bases to the pubic symphysis.? Coronal and sagittal reformats were performed.? For radiation dose reduction, the following was used:? automated exposure control, adjustment of mA and/or kV according to patient size.? ? COMPARISON:? [facility], CT, CT ABDOMEN PELVIS W CON, 03/28/2021, 10:56. ? FINDINGS:? Image quality:? Excellent.? ? Lung bases:? Unremarkable. Heart:? No significant findings. ? ABDOMEN: Liver:? Unremarkable.? ? Gallbladder:? Unremarkable.? ? Biliary ducts:? Unremarkable.? ? Pancreas:? Unremarkable.? ? Spleen:? Unremarkable.? ? Adrenal Glands:? Unremarkable.? ? Kidneys and Ureters:? Unremarkable.? ? ? Stomach and Bowel:? Extensive sigmoid diverticulosis.? No convincing evidence of acute diverticulitis.? There is diverticulosis involving the entirety of the colon.? It is relatively extensive throughout.2? Peritoneum:? No abnormal intraperitoneal fluid.? No free air.? ? Ventral Wall: ? No hernias.? Abdominal Nodes:? No retroperitoneal or mesenteric adenopathy by size criteria.? Vessels:? Aorta and inferior vena cava are normal in size.? ? PELVIS: Pelvic Organs:? Multiple uterine fibroids are noted.? A spherical lesion immediately subjacent to the wall of the distal sigmoid colon on image 63/2 represents a exophytic uterine fibroid measuring 1.7 cm.? There is also what appears to be a slightly enlarging somewhat exophytic left lower uterine segment fibroid. Bladder:? Unremarkable.? ? Pelvic Nodes: No enlarged lymph nodes.? Miscellaneous: No hernias are seen. ? ? ? Bones:? Unremarkable.? IMPRESSION:? ? 1. Extensive diverticulosis without CT evidence of acute diverticulitis. ? 2. Fibroid uterus. ? ? Dictated by: Martin Gonzalez M.D. on 10/10/2021 at 17:35 ? ? ECG Data Interpretation: Sinus rhythm rate 102 MS interval 140 QRS 90 QTC 445 T-wave inversion noted in lead [address] changes MDM Narrative Medical decision making narrative: Patient does have rectal bleeding she is Hemoccult positive hemoglobin is slightly decreased from 14-11 however 14 with done over a year ago. She actually has repeat hemoglobin and hematocrit and remains exactly the same. Heart rate improved with normal saline she is quite anxious normal lactate normal CT. She has had no further episodes of GI bleeding while in the emergency department and she has been here for 6 hours. She has a GI doctor that she sees regularly. At this time and this can be managed outpatient. I discussed with her home to return to the ED be. I expect that she may have some continued GI bleeding but it had largely improved with time. At this time no need for admission. Discharge Plan Departure Patient Disposition: Home Clinical Impression: Acute GI bleeding Instructions: Gastrointestinal Bleeding Activity Restrictions/Additional Instructions: *You have been diagnosed with GI bleeding *What to do: At this time her blood levels are stable. I do strongly encourage you to follow-up get a colonoscopy. I hope that the bleeding decreases over the next 1-2 days however it may start increasing. *Continue to take medications as directed *Follow up with your primary care provider in 2-3 days or call [phone] Follow-up with general surgery or your GI doctor for a colonoscopy *Return to ER if you should have increasing blood loss dizziness lightheadedness vomiting palpitations or any new, worsening or concerning symptoms Prescriptions: No Action Prilosec OTC 20 mg tablet,delayed release (DR/EC) 20 mg PO DAILY 0RF candesartan 8 mg tablet 8 mg PO DAILY 0RF alprazolam 0.5 mg tablet 0.5 mg PO BEDTIME MDD 1.0 PRN (Reason: Anxiety) 0RF dicyclomine 20 mg tablet 20 mg PO BID PRN (Reason: Cramps) 0RF acetaminophen 325 mg Tablet 325 mg PO PACUNOW PRN (Reason: Pain, Mild (1-3)) Qty: 0 0RF Referrals: Danielle Armas PA-C [Primary Care Provider] -
[2021-10-10 16:34] LABS: Hematocrit 33.5 % (36-46)
[2021-10-10 16:50] LABS: RBC Urine 1-5/HPF (0-5/HPF); WBC Urine 5-10/HPF (0-5/HPF)
[2021-10-10 16:51] LABS: Bacteria Urine Moderate (10-30); Renal Epithelial Cells Urine 5-10/HPF (0-1/HPF); Transitional Epi Cells Urine 1-5/HPF (0-5/HPF)
--- NOTE | 2021-10-10 17:14 | DI.CT.S_ITS ---
PROCEDURE: CT ABDOMEN PELVIS W CON INDICATIONS: llq pain and gi bleed TECHNIQUE: After the administration of intravenous contrast, axial sections acquired from the lung bases to the pubic symphysis. Coronal and sagittal reformats were performed. For radiation dose reduction, the following was used: automated exposure control, adjustment of mA and/or kV according to patient size. COMPARISON: [facility], CT, CT ABDOMEN PELVIS W CON, 03/28/2021, 10:56. FINDINGS: Image quality: Excellent. Lung bases: Unremarkable. Heart: No significant findings. ABDOMEN: Liver: Unremarkable. Gallbladder: Unremarkable. Biliary ducts: Unremarkable. Pancreas: Unremarkable. Spleen: Unremarkable. Adrenal Glands: Unremarkable. Kidneys and Ureters: Unremarkable. Stomach and Bowel: Extensive sigmoid diverticulosis. No convincing evidence of acute diverticulitis. There is diverticulosis involving the entirety of the colon. It is relatively extensive throughout.2 Peritoneum: No abnormal intraperitoneal fluid. No free air. Ventral Wall: No hernias. Abdominal Nodes: No retroperitoneal or mesenteric adenopathy by size criteria. Vessels: Aorta and inferior vena cava are normal in size. PELVIS: Pelvic Organs: Multiple uterine fibroids are noted. A spherical lesion immediately subjacent to the wall of the distal sigmoid colon on image 63/2 represents a exophytic uterine fibroid measuring 1.7 cm. There is also what appears to be a slightly enlarging somewhat exophytic left lower uterine segment fibroid. Bladder: Unremarkable. Pelvic Nodes: No enlarged lymph nodes. Miscellaneous: No hernias are seen. Bones: Unremarkable. IMPRESSION: 1. Extensive diverticulosis without CT evidence of acute diverticulitis. 2. Fibroid uterus. Dictated by: Martin Gonzalez M.D. on 10/10/2021 at 17:35 Approved by: Martin Gonzalez M.D. on 10/10/2021 at 17:40
== END 2021-10-10 18:46 | disposition home or self-care (01) ==
PROVIDERS: Emergency Provider Emergency Medicine; PCP Physician Assistant; Referring Provider Nurse Practitioner Family
DX: K92.2 Gastrointestinal hemorrhage, unspecified (principal)
CPT/HCPCS: 36415; 74177; 80053; 81003; 81015; 81025; 82272; 83605; 85014; 85018; 85025; 85610; 85730; 87086; 93005; 93010; 96361; 96374; 99284; C9113; Q9967

== ENCOUNTER → 2022-03-23 10:58 | Outpatient (CLI) | payer OTHER, SELFPAY ==
[2019-12-16 13:33] VITALS: BMI 25.7
--- NOTE | 2022-03-23 | DI.MG.S_ITS ---
BILATERAL DIGITAL SCREENING MAMMOGRAM 3D/2D WITH CAD: 03/23/2022 CLINICAL: Routine screening. Comparison is made to exams dated: 03/22/2021 mammogram, 02/03/2020 mammogram, and 10/08/2018 mammogram - [facility]. Both breasts are heterogeneously dense, which may obscure small masses (category c / 51-75% glandular tissue). Current study was also evaluated with a Computer Aided Detection (CAD) system. There are benign calcifications in the left breast. No significant masses, calcifications, or other findings are seen in either breast. There has been no significant interval change. IMPRESSION: BENIGN There is no mammographic evidence of malignancy. A 1 year screening mammogram is recommended. This exam was interpreted at Station ID: [id number]. NOTE: For mammograms, a report in lay terms will be sent to the patient. Approximately 15% of breast malignancies will not be visualized mammographically. In the management of a palpable breast mass, a negative mammogram must not discourage biopsy of a clinically suspicious lesion. Electronically Signed By: Jimenez Conley M.D., jr/milagros:03/23/2022 14:19:38 letter sent: Normal Exam ACR BI-RADS Category 2: Benign Finding(s) 3342F
== END ==
PROVIDERS: PCP Physician Assistant; Referring Provider Physician Assistant; Visit Provider Physician Assistant
DX: Z12.31 Encounter for screening mammogram for malignant neoplasm of breast (principal)
CPT/HCPCS: 77063; 77067

== ENCOUNTER → 2023-02-09 10:15 | Outpatient (CLI) | payer OTHER, SELFPAY ==
[2019-12-16 13:33] VITALS: BMI 25.7
[2023-02-09 11:17] LABS: Hematocrit 39.5 % (36-46); Hemoglobin 12.8 g/dL (12.0-16.0); Mean Corpuscular HGB Conc 32.5 % (30-36); Mean Corpuscular Hemoglobin 26.5 PG (26-34); Mean Corpuscular Volume 81.7 fL (80-100); Platelet Count 304 X10^3/uL (150-400); Red Blood Cell Count 4.84 X10^6/uL (4.0-5.2); Red Cell Distribution Width 15.7 % (11.6-14.8); White Blood Cell Count 4.9 X10^3/uL (4.5-11.0)
[2023-02-09 11:28] LABS: HEMOLYSIS < 15 (0-50); Iron 48 ug/dL (37-170)
[2023-02-09 11:30] LABS: Alanine Aminotransferase 37 IU/L (<35); Albumin 4.5 g/dL (3.5-5.0); Albumin Globulin Ratio 1.4 (1.0-2.8); Alkaline Phosphatase 85 U/L (38-126); Aspartate Aminotransferase 32 IU/L (14-36); BUN Creatinine Ratio 13.5 (6-22); Bilirubin Total 0.3 mg/dL (0.2-1.3); Blood Urea Nitrogen 10 mg/dL (7-17); Calcium 9.4 mg/dL (8.4-10.2); Carbon Dioxide 29 mmol/L (22-32); Chloride 103 mmol/L (98-107); Cholesterol 225 mg/dL (140-199); Estimated Glomerular Filt Rate > 60 mL/min (>60); Globulin 3.3 g/dL (1.7-4.1); Glucose 94 mg/dL (80-110); HDL Cholesterol 46 mg/dL (40-60); HEMOLYSIS < 15 (0-50); LDL Cholesterol Calculated 154 mg/dL (<100); Potassium 4.3 mmol/L (3.4-5.1); Sodium 138 mmol/L (137-145); Total Protein 7.8 g/dL (6.3-8.2); Triglycerides 127 mg/dL (35-150)
[2023-02-09 11:40] LABS: Percent Iron Saturation 11 % (15-50); Total Iron Binding Capacity 426 ug/dL (265-497); Transferrin 313 mg/dL (206-381)
[2023-02-09 11:46] LABS: Vitamin D 25 Hydroxy (D3) 26.1 ng/mL (30.0-100.0)
[2023-02-09 11:58] LABS: TSH w/ Reflex to FT4 0.39 uIU/mL (0.47-4.68)
[2023-02-09 12:02] LABS: Ferritin 9 ng/mL (11-264)
[2023-02-09 12:25] LABS: Free T4, Direct Thyroxine 1.16 ng/dL (0.78-2.19)
== END ==
PROVIDERS: PCP Registered Nurse Diabetes Educator; Referring Provider Registered Nurse Diabetes Educator; Visit Provider Registered Nurse Diabetes Educator
DX: Z00.00 Encounter for general adult medical examination without abnormal findings (principal); E61.1 Iron deficiency; I10 Essential (primary) hypertension
CPT/HCPCS: 36415; 80053; 80061; 82306; 82728; 83540; 83550; 84439; 84443; 85027

== ENCOUNTER → 2023-03-26 10:55 | Outpatient (CLI) | payer OTHER, SELFPAY ==
[2019-12-16 13:33] VITALS: BMI 25.7
--- NOTE | 2023-03-26 | DI.MG.S_ITS ---
BILATERAL DIGITAL SCREENING MAMMOGRAM 3D/2D WITH CAD: 03/26/2023 CLINICAL: Routine screening. Comparison is made to exams dated: 03/23/2022 mammogram, 02/03/2020 mammogram, and 03/22/2021 mammogram - [facility]. Both breasts are heterogeneously dense, which may obscure small masses (category c / 51-75% glandular tissue). Current study was also evaluated with a Computer Aided Detection (CAD) system. No significant masses, calcifications, or other findings are seen in either breast. IMPRESSION: NEGATIVE There is no mammographic evidence of malignancy. A 1 year screening mammogram is recommended. Based on the Tyrer Cuzick model (a risk assessment model) the patient's lifetime risk is 15.0% and her 10 year risk is 6.2%. According to the ACR, ACS, and NCCN guidelines, an annual breast MRI exam along with mammogram is recommended if the patient's lifetime risk is 20% or greater. This exam was interpreted at Station ID: [id number]. NOTE: For mammograms, a report in lay terms will be sent to the patient. Approximately 15% of breast malignancies will not be visualized mammographically. In the management of a palpable breast mass, a negative mammogram must not discourage biopsy of a clinically suspicious lesion. Electronically Signed By: Amara willams/milagros:03/27/2023 00:01:23 letter sent: Normal Exam ACR BI-RADS Category 1: Negative 3341F
== END ==
PROVIDERS: PCP Registered Nurse Diabetes Educator; Referring Provider Registered Nurse Diabetes Educator; Visit Provider Registered Nurse Diabetes Educator
DX: Z12.31 Encounter for screening mammogram for malignant neoplasm of breast (principal)
CPT/HCPCS: 77063; 77067

== ENCOUNTER → 2023-05-15 10:48 | Outpatient (CLI) | payer OTHER, SELFPAY ==
[2019-12-16 13:33] VITALS: BMI 25.7
[2023-05-15 12:21] LABS: HEMOLYSIS < 15 (0-50)
[2023-05-15 12:23] LABS: Alanine Aminotransferase 45 IU/L (<35); Albumin 4.5 g/dL (3.5-5.0); Albumin Globulin Ratio 1.4 (1.0-2.8); Alkaline Phosphatase 78 U/L (38-126); Aspartate Aminotransferase 37 IU/L (14-36); Bilirubin Total 0.6 mg/dL (0.2-1.3); Bilirubin Unconjugated 0.3 mg/dL (0.0-1.1); Globulin 3.2 g/dL (1.7-4.1); HEMOLYSIS < 15 (0-50); Total Protein 7.7 g/dL (6.3-8.2)
[2023-05-15 12:57] LABS: TSH w/ Reflex to FT4 0.46 uIU/mL (0.47-4.68)
[2023-05-15 13:01] LABS: Ferritin 22 ng/mL (11-264)
[2023-05-15 14:12] LABS: Iron 81 ug/dL (37-170)
[2023-05-15 14:23] LABS: Percent Iron Saturation 23 % (15-50); Total Iron Binding Capacity 347 ug/dL (265-497); Transferrin 292 mg/dL (206-381)
[2023-05-15 14:29] LABS: Free T4, Direct Thyroxine 1.18 ng/dL (0.78-2.19)
== END ==
PROVIDERS: PCP Registered Nurse Diabetes Educator; Referring Provider Registered Nurse Diabetes Educator; Visit Provider Registered Nurse Diabetes Educator
DX: E61.1 Iron deficiency (principal); R79.89 Other specified abnormal findings of blood chemistry; E55.9 Vitamin D deficiency, unspecified; R74.8 Abnormal levels of other serum enzymes
CPT/HCPCS: 36415; 80076; 82728; 83540; 83550; 84439; 84443

== ENCOUNTER → 2023-09-14 10:16 | Outpatient (CLI) | payer OTHER, SELFPAY ==
[2019-12-16 13:33] VITALS: BMI 25.7
[2023-09-14 11:53] LABS: Alanine Aminotransferase 65 IU/L (<35); Albumin 4.3 g/dL (3.5-5.0); Albumin Globulin Ratio 1.3 (1.0-2.8); Alkaline Phosphatase 90 U/L (38-126); Aspartate Aminotransferase 46 IU/L (14-36); Bilirubin Total 0.7 mg/dL (0.2-1.3); Bilirubin Unconjugated 0.6 mg/dL (0.0-1.1); Cholesterol 231 mg/dL (140-199); Globulin 3.2 g/dL (1.7-4.1); HDL Cholesterol 48 mg/dL (40-60); HEMOLYSIS < 15 (0-50); LDL Cholesterol Calculated 154 mg/dL (<100); Total Protein 7.5 g/dL (6.3-8.2); Triglycerides 144 mg/dL (35-150)
== END ==
PROVIDERS: PCP Registered Nurse Diabetes Educator; Referring Provider Registered Nurse Diabetes Educator; Visit Provider Registered Nurse Diabetes Educator
DX: E78.5 Hyperlipidemia, unspecified (principal); R74.8 Abnormal levels of other serum enzymes
CPT/HCPCS: 36415; 80061; 80076

== ENCOUNTER → 2023-10-03 08:30 | Outpatient (CLI) | payer OTHER, SELFPAY ==
[2019-12-16 13:33] VITALS: BMI 25.7
--- NOTE | 2023-10-03 08:31 | DI.US.S_ITS ---
PROCEDURE: US ABDOMEN LIMITED INDICATIONS: eval liver enzyme elevation TECHNIQUE: Real-time focused scanning was performed of the abdomen, with image documentation. COMPARISON: [facility], CT, CT ABDOMEN PELVIS W CON, 10/10/2021, 17:22. FINDINGS: Liver measures 14 cm. Mildly increased echogenicity. Gallbladder is unremarkable. Nondilated biliary tree. Visualized pancreas unremarkable. IMPRESSION: Mildly increased hepatic echogenicity is nonspecific, possibly related to steatosis. Unremarkable biliary system. Dictated by: Vipul Stuart M.D. on 10/03/2023 at 11:32 Approved by: Vipul Stuart M.D. on 10/03/2023 at 11:33
== END ==
LOC: US 08:31
PROVIDERS: PCP Registered Nurse Diabetes Educator; Referring Provider Registered Nurse Diabetes Educator; Visit Provider Registered Nurse Diabetes Educator
DX: R74.8 Abnormal levels of other serum enzymes (principal)
CPT/HCPCS: 76705

== ENCOUNTER → 2024-04-07 15:10 | Outpatient (CLI) | payer BC, SELFPAY ==
[2019-12-16 13:33] VITALS: BMI 25.7
--- NOTE | 2024-04-07 | DI.MG.S_ITS ---
BILATERAL DIGITAL SCREENING MAMMOGRAM 3D/2D WITH CAD: 04/07/2024 CLINICAL: Routine screening. Comparison is made to exams dated: 03/26/2023 mammogram, 03/23/2022 mammogram, and 03/22/2021 mammogram - [facility]. There are scattered areas of fibroglandular density (category b / 25%-50% glandular tissue). Current study was also evaluated with a Computer Aided Detection (CAD) system. There is a possible developing high density asymmetry with a spiculated margin in the right breast middle depth central to the nipple seen on the craniocaudal view only. This is more prominent. No other significant masses, calcifications, or other findings are seen in either breast. IMPRESSION: INCOMPLETE: NEED ADDITIONAL IMAGING EVALUATION The possible developing high density asymmetry in the right breast is indeterminate. Additional views with possible ultrasound are recommended. Based on the Tyrer Cuzick model (a risk assessment model) the patient's lifetime risk is 9.9% and her 10 year risk is 4.1%. According to the ACR, ACS, and NCCN guidelines, an annual breast MRI exam along with mammogram is recommended if the patient's lifetime risk is 20% or greater. This exam was interpreted at Station ID: [id number]. NOTE: For mammograms, a report in lay terms will be sent to the patient. Approximately 15% of breast malignancies will not be visualized mammographically. In the management of a palpable breast mass, a negative mammogram must not discourage biopsy of a clinically suspicious lesion. Electronically Signed By: Jaqueline logan/milagros:04/08/2024 17:10:17 letter sent: Additional Imaging Needed ACR BI-RADS Category 0: Incomplete: Need Additional Imaging Evaluation
== END ==
PROVIDERS: PCP Registered Nurse Diabetes Educator; Referring Provider Registered Nurse Diabetes Educator; Visit Provider Registered Nurse Diabetes Educator
DX: Z12.31 Encounter for screening mammogram for malignant neoplasm of breast (principal)
CPT/HCPCS: 77063; 77067

== ENCOUNTER → 2024-05-05 11:23 | Outpatient (CLI) | payer BC, SELFPAY ==
[2019-12-16 13:33] VITALS: BMI 25.7
--- NOTE | 2024-05-05 11:25 | DI.US.S_ITS ---
LIMITED ULTRASOUND OF RIGHT BREAST: 05/05/2024 CLINICAL: Patient returns today to evaluate a focal asymmetry in the right breast. Comparison is made to exams dated: 05/05/2024 mammogram, 04/07/2024 mammogram, 03/26/2023 mammogram, and 03/23/2022 mammogram - [facility]. Color flow and real-time ultrasound of the right breast 6-7 o'clock and 12 o'clock regions were performed. Swanson scale images of the real-time examination were reviewed. There is a 1.1 cm x 0.5 cm x 0.7 cm oval cyst with thin septated internal hussein in the right breast at 7 o'clock middle depth 9 cm from the nipple. This oval cyst is hypoechoic with internal echoes. This possibly correlates with mammography findings. Color flow imaging demonstrates that there is no vascularity present. IMPRESSION: PROBABLY BENIGN The 1.1 cm x 0.5 cm x 0.7 cm oval cyst in the right breast is consistent with a complicated cyst and is probably benign. A follow-up right mammogram and right ultrasound in 6 months is recommended to demonstrate stability. Findings and recommendations were conveyed to the patient during today's evaluation. This exam was interpreted at Station ID: [id number]. Electronically Signed By: Kade Wang M.D. aty/:05/05/2024 15:22:46 letter sent: Followup Recommended ACR BI-RADS Category 3: Probably Benign
--- NOTE | 2024-05-05 11:25 | DI.MG.S_ITS ---
UNILATERAL RIGHT DIGITAL DIAGNOSTIC MAMMOGRAM 3D/2D WITH ADDITIONAL VIEWS: 05/05/2024 CLINICAL: Additional evaluation requested from prior study. Comparison is made to exams dated: 04/07/2024 mammogram, 03/26/2023 mammogram, and 03/23/2022 mammogram - [facility]. There are scattered areas of fibroglandular density (category b / 25%-50% glandular tissue). The previously described possible developing oval asymmetry in the right breast middle depth central to the nipple seen on the craniocaudal view only is not definitively seen in today's additional views. It appears less prominent. No other significant masses or calcifications are seen in the breast. IMPRESSION: INCOMPLETE: NEED ADDITIONAL IMAGING EVALUATION The possible developing oval asymmetry in the right breast is indeterminate. An ultrasound is recommended for further evaluation and is scheduled to immediately follow this examination. Based on the Tyrer Cuzick model (a risk assessment model) the patient's lifetime risk is 9.9% and her 10 year risk is 4.1%. According to the ACR, ACS, and NCCN guidelines, an annual breast MRI exam along with mammogram is recommended if the patient's lifetime risk is 20% or greater. This exam was interpreted at Station ID: [id number]. NOTE: For mammograms, a report in lay terms will be sent to the patient. Approximately 15% of breast malignancies will not be visualized mammographically. In the management of a palpable breast mass, a negative mammogram must not discourage biopsy of a clinically suspicious lesion. Electronically Signed By: Kade Wang M.D. aty/:05/05/2024 15:18:29 letter sent: Additional Imaging Needed ACR BI-RADS Category 0: Incomplete: Need Additional Imaging Evaluation
[2024-05-05 12:18] LABS: Hematocrit 43.4 % (36-46); Hemoglobin 14.2 g/dL (12.0-16.0); Mean Corpuscular HGB Conc 32.7 % (30-36); Mean Corpuscular Hemoglobin 28.6 PG (26-34); Mean Corpuscular Volume 87.5 fL (80-100); Platelet Count 304 X10^3/uL (150-400); Red Blood Cell Count 4.96 X10^6/uL (4.0-5.2); Red Cell Distribution Width 14.1 % (11.6-14.8); White Blood Cell Count 7.6 X10^3/uL (4.5-11.0)
[2024-05-05 12:44] LABS: Alanine Aminotransferase 39 IU/L (<35); Albumin 4.6 g/dL (3.5-5.0); Albumin Globulin Ratio 1.6 (1.0-2.8); Alkaline Phosphatase 99 U/L (38-126); Aspartate Aminotransferase 34 IU/L (14-36); BUN Creatinine Ratio 17.9 (6-22); Bilirubin Total 0.7 mg/dL (0.2-1.3); Blood Urea Nitrogen 14 mg/dL (7-17); Carbon Dioxide 29 mmol/L (22-32); Chloride 104 mmol/L (98-107); Cholesterol 228 mg/dL (140-199); Estimated Glomerular Filt Rate > 60 mL/min (>60); Globulin 2.9 g/dL (1.7-4.1); Glucose 98 mg/dL (80-110); HDL Cholesterol 53 mg/dL (40-60); HEMOLYSIS < 15 (0-50); LDL Cholesterol Calculated 150 mg/dL (<100); Potassium 4.6 mmol/L (3.4-5.1); Sodium 140 mmol/L (137-145); Total Protein 7.5 g/dL (6.3-8.2); Triglycerides 124 mg/dL (35-150)
[2024-05-05 13:12] LABS: TSH w/ Reflex to FT4 0.89 uIU/mL (0.47-4.68)
[2024-05-05 14:40] LABS: Hepatitis B Surface Antigen NEGATIVE s/c (NEGATIVE)
[2024-05-05 15:05] LABS: Hep C Virus Ab w/Reflex Quant NEGATIVE s/c (NEGATIVE)
== END ==
PROVIDERS: PCP Registered Nurse Diabetes Educator; Referring Provider Registered Nurse Diabetes Educator; Visit Provider Registered Nurse Diabetes Educator
DX: R92.8 Other abnormal and inconclusive findings on diagnostic imaging of breast (principal); N60.01 Solitary cyst of right breast; I10 Essential (primary) hypertension; E78.5 Hyperlipidemia, unspecified; R74.8 Abnormal levels of other serum enzymes
CPT/HCPCS: 36415; 76642; 77065; 80053; 80061; 84443; 85027; 86803; 87340; G0279

== ENCOUNTER → 2024-09-23 15:38 | Outpatient (CLI) | payer BC, SELFPAY ==
[2019-12-16 13:33] VITALS: BMI 25.7
[2024-09-23 17:39] LABS: Blood Urea Nitrogen 19 mg/dL (7-17); Calcium 9.6 mg/dL (8.4-10.2); Carbon Dioxide 28 mmol/L (22-32); Chloride 104 mmol/L (98-107); Estimated Glomerular Filt Rate > 60 mL/min (>60); Glucose 78 mg/dL (80-110); HEMOLYSIS < 15 (0-50); Potassium 4.6 mmol/L (3.4-5.1); Sodium 141 mmol/L (137-145)
[2024-09-23 18:12] LABS: Rubella Antibody IgG 51.9 IU/mL (>15)
[2024-09-25 09:39] LABS: Rubeola Measles IgG 60.5 AU/mL (Immune >16.4)
[2024-09-25 13:10] LABS: Mumps Virus IgG Antibody 73.1 AU/mL (Immune >10.9)
== END ==
PROVIDERS: PCP Registered Nurse Diabetes Educator; Referring Provider Registered Nurse Diabetes Educator; Visit Provider Registered Nurse Diabetes Educator
DX: Z01.419 Encounter for gynecological examination (general) (routine) without abnormal findings (principal); I10 Essential (primary) hypertension
CPT/HCPCS: 36415; 80048; 86735; 86762; 86765

== ENCOUNTER → 2024-11-12 09:58 | Outpatient (CLI) | payer BC, SELFPAY ==
[2019-12-16 13:33] VITALS: BMI 25.7
--- NOTE | 2024-11-12 09:59 | DI.MG.S_ITS ---
MM diagnostic mammo unilat RT, US breast RT limited: 11/12/2024 BI-RADS: 3 CLINICAL: 64-year old female for right diagnostic mammogram and right diagnostic breast ultrasound. Tyrer-Cuzick lifetime risk of 9.6%. No personal or first-degree family history of breast cancer. PRIOR EXAMS 05/05/2024, 04/07/2024, 03/26/2023, 03/23/2022, 03/22/2021, 02/03/2020, 10/08/2018, 10/08/2017, 10/02/2016, 09/17/2015. MAMMOGRAPHY TECHNIQUE: 2D and 3D (tomosynthesis) digital mammographic views obtained, with additional images as needed for full coverage. Current study was also evaluated with a Computer Aided Detection (CAD) system. ULTRASOUND TECHNIQUE Real-time bernstein scale and color doppler imaging of the area of clinical interest was performed with image documentation. TARGETED Right Breast Ultrasound: Real-time ultrasound exam was performed focused to area of clinical and/or imaging concern. MAMMOGRAPHY FINDINGS Right: Upper at 12:00, Middle depth: There is a stable asymmetry present. Right: Lower Outer at 7:00, Middle depth: There is a stable asymmetry present. ULTRASOUND FINDINGS Right: Lower Outer at 7:00, 9 cm from nipple, measuring 0.6 x 0.4 x 0.2 cm: This has morphology consistent with a benign intramammary lymph node. Right: Upper at 12:00, 9 cm from nipple, measuring 0.4 x 0.6 x 0.4 cm: This has morphology consistent with a benign intramammary lymph node. IMPRESSION: Right: Lower Outer at 7:00, 9 cm from nipple, measuring 0.6 x 0.4 x 0.2 cm * Probably Benign. Right: Upper at 12:00, 9 cm from nipple, measuring 0.4 x 0.6 x 0.4 cm * Probably Benign. RECOMMENDATIONS Right: Lower Outer at 7:00, 9 cm from nipple * Six month followup with diagnostic ultrasound. Right: Upper at 12:00, 9 cm from nipple * Six month followup with diagnostic ultrasound. COMMENTS: Findings and recommendations were conveyed to the patient during today's evaluation. OVERALL ASSESSMENT CATEGORY BI-RADS-3: Probably Benign. ELECTRONICALLY SIGNED: Jaqueline Riggs M.D. on 11/13/2024 at 12:33:53 AM PT Interpreting Station ID: [id number]
== END ==
PROVIDERS: PCP Registered Nurse Diabetes Educator; Referring Provider Registered Nurse Diabetes Educator; Visit Provider Registered Nurse Diabetes Educator
DX: R92.8 Other abnormal and inconclusive findings on diagnostic imaging of breast (principal)
CPT/HCPCS: 76642; 77065; G0279

== ENCOUNTER → 2025-05-04 09:37 | Outpatient (CLI) | payer BC, SELFPAY ==
[2019-12-16 13:33] VITALS: BMI 25.7
[2025-05-04 10:24] LABS: Hematocrit 43.3 % (36-46); Hemoglobin 14.3 g/dL (12.0-16.0); Mean Corpuscular HGB Conc 33.0 % (30-36); Mean Corpuscular Hemoglobin 28.2 PG (26-34); Mean Corpuscular Volume 85.2 fL (80-100); Platelet Count 271 X10^3/uL (150-400)
[2025-05-04 11:02] LABS: Alanine Aminotransferase 49 IU/L (<35); Albumin 4.8 g/dL (3.5-5.0); Albumin Globulin Ratio 1.7 (1.0-2.8); Alkaline Phosphatase 90 U/L (38-126); Blood Urea Nitrogen 14 mg/dL (7-17); Calcium 9.9 mg/dL (8.4-10.2); Carbon Dioxide 29 mmol/L (22-32); Chloride 104 mmol/L (98-107); Cholesterol 221 mg/dL (140-199); Estimated Glomerular Filt Rate > 60 mL/min (>60); Globulin 2.9 g/dL (1.7-4.1); Glucose 108 mg/dL (70-99); HDL Cholesterol 48 mg/dL (40-60); HEMOLYSIS < 15 (0-50); Potassium 4.8 mmol/L (3.4-5.1); Sodium 142 mmol/L (137-145); Total Protein 7.7 g/dL (6.3-8.2); Triglycerides 154 mg/dL (35-150)
[2025-05-04 11:27] LABS: TSH w/ Reflex to FT4 0.55 uIU/mL (0.47-4.68)
== END ==
PROVIDERS: PCP Registered Nurse Diabetes Educator; Referring Provider Registered Nurse Diabetes Educator; Visit Provider Registered Nurse Diabetes Educator
DX: I10 Essential (primary) hypertension (principal); E78.5 Hyperlipidemia, unspecified; K76.0 Fatty (change of) liver, not elsewhere classified
CPT/HCPCS: 36415; 80053; 80061; 84443; 85027

== ENCOUNTER → 2025-05-18 10:00 | Outpatient (CLI) | payer BC, SELFPAY ==
[2019-12-16 13:33] VITALS: BMI 25.7
--- NOTE | 2025-05-18 10:01 | DI.US.S_ITS ---
MM diagnostic mammo BI, US breast RT limited: 05/18/2025 BI-RADS: 2 CLINICAL: 64-year old female for bilateral diagnostic mammogram and right diagnostic breast ultrasound that is a follow-up to diagnostic mammogram on 11/12/2024. Tyrer-Cuzick lifetime risk of 8.1%. No personal or first-degree family history of breast cancer. PRIOR EXAMS 11/12/2024, 10/03/2023, 10/02/2022, 10/02/2021, 10/02/2020, 10/03/2019, 10/02/2018, 10/02/2017, 10/02/2016, 09/17/2015. MAMMOGRAPHY TECHNIQUE: 2D and 3D (tomosynthesis) digital mammographic views obtained, with additional images as needed for full coverage. Current study was also evaluated with a Computer Aided Detection (CAD) system. ULTRASOUND TECHNIQUE TARGETED Right Breast Ultrasound: Real-time ultrasound exam was performed focused to area of clinical and/or imaging concern. Real-time bernstein scale and color doppler imaging of the area of clinical interest was performed with image documentation. DENSITY Left: B. There are scattered areas of fibroglandular density. MAMMOGRAPHY FINDINGS Right: The previously described focal asymmetries at 12 o'clock and 7 o'clock, middle depth are no longer definitely visualized on the current examination. No suspicious mass, asymmetry, microcalcification, or other abnormality seen. Left: No suspicious mass, asymmetry, microcalcification, or other abnormality seen. ULTRASOUND FINDINGS Right: Upper at 12:00, 9 cm from nipple, measuring 0.3 x 0.2 x 0.6 cm: Correlating with prior imaging concern, there are clustered microcysts. Doppler shows no vascularity. Right: Lower Outer at 7:00, 9 cm from nipple: The previously seen cyst is no longer visualized. No suspicious sonographic finding present. IMPRESSION: Right * No evidence of malignancy with benign findings. Left * No evidence of malignancy. RECOMMENDATIONS Bilateral * Annual screening mammography. COMMENTS: Findings and recommendations were conveyed to the patient during today's evaluation. OVERALL ASSESSMENT CATEGORY BI-RADS-2: Benign. The [employer] recommends annual screening mammography beginning at age 40 for women with average risk of breast cancer. ELECTRONICALLY SIGNED: Amie Cole M.D. on 05/18/2025 at 12:45:59 PM PT Interpreting Station ID: [id number]
== END ==
LOC: MAMMO 10:01
PROVIDERS: PCP Registered Nurse Diabetes Educator; Referring Provider Registered Nurse Diabetes Educator; Visit Provider Registered Nurse Diabetes Educator
DX: R92.8 Other abnormal and inconclusive findings on diagnostic imaging of breast (principal)
CPT/HCPCS: 76642; 77066; G0279